=== PATIENT | male | born 1955 | race Caucasian/White ===

== ENCOUNTER 2019-10-29 11:49 | Emergency (ER) | payer OTHER ==
[2019-10-29] MEDS ORDERED: LISI-552 (12:00)
[2019-10-29] MEDS ORDERED: SIMV40TA25 (12:00)
--- NOTE | 2019-10-29 12:08 | ED Fall/Injury ---
General Chief Complaint: Trauma-Non Activation Stated Complaint: FALL; RT RIB/RT WRIST/RT SHOULDER INJ Nursing Triage Note: Fell off a 4 foot step ladder 1.5 hours prior to arrival. Is complaining of R rib, R wrist, and R shoulder pain. Pain is rated at 9/10. Has taken 4 tylenol prior to arrival. States taking a deep breath is painful. Source: patient Exam Limitations: no limitations History of Present Illness Date Seen by Provider: Oct 29, 2019 Time Seen by Provider: 11:54 Initial Comments Patient presents ER by private conveyance with his significant other and chief complaint that about an hour and half prior to arrival he fell 4 feet from a stepladder when the legs lost their footing on his outstretched right arm and right side. He did not strike his head nor lose consciousness. No nausea or vomiting. He took a couple tablets of Tylenol and the pain is still significant in his ribs and his right wrist has decreased mobility. He takes aspirin daily but no other blood thinners. No previous injury to his right wrist. No surgeries. No pain in his neck or back. Allergies and Home Medications Allergies Coded Allergies: No Known Drug Allergies (Unverified , 10/29/19) Patient Home Medication List Home Medication List Reviewed: Yes Review of Systems Review of Systems Constitutional: No chills, No diaphoresis Eyes: Denies Blindness, Denies Blurred Vision Ears, Nose, Mouth, Throat: denies ear pain, denies ear discharge Respiratory: No cough, No short of breath Cardiovascular: No chest pain, No edema, No palpitations Gastrointestinal: No abdominal pain, No constipation, No nausea Genitourinary: No discharge, No dysuria Musculoskeletal: see HPI; No back pain; joint pain Skin: see HPI; No pruritus, No rash; other (minor abrasions on right forearm) All Other Systems Reviewed Negative Unless Noted: Yes Past Rrhnlxa-Qbmnxi-Zgwska Hx Patient Social History Alcohol Use: Occasionally Uses Recreational Drug Use: No Smoking Status: Never a Smoker 2nd Hand Smoke Exposure: No Recent Foreign Travel: No Contact w/Someone Who Travel: No Recent Infectious Disease Expo: No Recent Hopitalizations: No Seasonal Allergies Seasonal Allergies: No Past Medical History Respiratory: No Cardiac: Yes High Cholesterol, Hypertension Neurological: No Genitourinary: No Gastrointestinal: No Musculoskeletal: No Endocrine: No HEENT: No Cancer: No Psychosocial: No Integumentary: No Blood Disorders: No Adverse Reaction/Blood Tranf: No Physical Exam Vital Signs Vital Signs - First Documented 10/29/19 11:55 Temp 36.1 Pulse 82 Resp 20 B/P (MAP) 140/71 (94) Pulse Ox 95 Capillary Refill : Less Than 3 Seconds Height, Weight, BMI Height: '" Weight: lbs. oz. kg; BMI Method: General Appearance: WD/WN, mild distress HEENT: PERRL/EOMI, normal ENT inspection, TMs normal, pharynx normal, other (. Atraumatic head with negative almendarez sign or raccoon eyes. Negative for hemotympanum) Neck: non-tender, full range of motion, supple, normal inspection Cardiovascular: normal peripheral pulses, regular rate, rhythm, no edema Respiratory: lungs clear, normal breath sounds, no respiratory distress, no accessory muscle use, other (right anterior ribs tender to palpation without deformity) Peripheral Pulses: 2+ Radial Pulses (R), 2+ Radial Pulses (L) Back: normal inspection, no vertebral tenderness Extremities: other (decreased range of motion of right wrist with swelling and tenderness over anatomic snuffbox. No pain over hand, digits.) Neurologic/Psychiatric: no motor/sensory deficits, alert, normal mood/affect, oriented x 3 Skin: normal color, warm/dry, other (minor abrasions over the right forearm) Misa Coma Score Best Eye Response: (4) Open Spontaneously Best Verbal Response: (5) Oriented Best Motor Response: (6) Obeys Commands Misa Total: 15 Progress/Results/Core Measures Results/Orders My Orders Orders - MANOJ MCKEON Ribs/Unilateral With Chest (10/29/19 12:03) Wrist 3 View Right (10/29/19 12:03) Vital Signs/I&O 10/29/19 11:55 Temp 36.1 Pulse 82 Resp 20 B/P (MAP) 140/71 (94) Pulse Ox 95 Blood Pressure Mean: 94 Progress Progress Note : Time: 12:07 Progress Note Using a supported clinical decision making process the patient has decided to opt for observation versus imaging of his head. Plan to image his right ribs, chest and right wrist. He is declining anything for pain at this time. Diagnostic Imaging Diagonstic Imaging: Xray Plain Films/CT/US/NM/MRI: chest Comments NAME: KELLI MILLAN [facility] REC#: [id number] PT STATUS: REG ER : 1955 PHYSICIAN: MANOJ MCKEON MD ADMIT DATE: 10/29/19/ER FS Draft Date of Exam:10/29/19 RIBS/UNILATERAL WITH CHEST INDICATION: Fall from a step ladder with injury to right-sided ribs. TIME OF EXAM: 12:09 PM Multiple views of the right ribs were obtained. There is a minimally displaced fracture involving the anterior right 9th rib. No other rib fractures are identified. No parenchymal contusion, effusion or pneumothorax is detected. Lungs clear. IMPRESSION: Minimally displaced anterior right 9th rib fracture. Dictated on workstation # [id number] Dict: 10/29/19 1246 Trans: 10/29/19 1248 CVB [id number] Interpreted by: BRYCE WALTON MD Electronically signed by: Reviewed: Reviewed by Me Diagonstic Imaging: Xray Plain Films/CT/US/NM/MRI: hand (right wrist) Comments [facility], [place] NAME: KELLI MILLAN [facility] REC#: [id number] PT STATUS: REG ER : 1955 PHYSICIAN: MANOJ MCKEON MD ADMIT DATE: 10/29/19/ER FS Draft Date of Exam:10/29/19 WRIST 3 VIEW RIGHT INDICATION: Fall, pain COMPARISON: None available. TECHNIQUE: 3 radiographs of the right wrist dated 10/29/2019. FINDINGS: Acute fracturing of the distal radius is identified with associated intra-articular extension to the radiocarpal joint. Very minimal articular step-off is suggested on the oblique radiographs. No additional fracture or dislocation. No destructive osseous process. No suspicious radiopaque foreign body. IMPRESSION: Acute distal radial fracture with associated intra-articular extension to the radiocarpal joint. Fracture is essentially non-displaced with questionable minimal articular surface depression. Dictated on workstation # [id number] Dict: 10/29/19 1226 Trans: 10/29/19 1231 CVB [id number] Interpreted by: CHRISTEL CLANCY MD Electronically signed by: Reviewed: Reviewed by Me Consults : Consulting Physician: CHRISTIANO KRAMER MD Consults Notes Discussed the case with Dr. Kramer and he reviewed the imaging electronically. He would recommend sugar tong splint and follow up next Tuesday. Departure Impression Primary Impression: Distal radius fracture, right Qualified Codes: S52.501A - Unspecified fracture of the lower end of right radius, initial encounter for closed fracture Additional Impressions: Closed rib fracture Qualified Codes: S22.31XA - Fracture of one rib, right side, initial encounter for closed fracture Fall from ladder Qualified Codes: W11.XXXA - Fall on and from ladder, initial encounter Disposition: HOME, SELF-CARE Condition: Stable Departure-Patient Inst. Decision time for Depature: 13:00 Referrals: AMARILYS MCQUEEN MD (PCP) Primary Care Physician CHRISTIANO KRAMER MD Patient Instructions: Head Injury Observation (DC), Radius Fracture (DC), Rib Fracture (DC) Add. Discharge Instructions: Over the next 24 hours if he started to have any confusion, weakness, difficulty walking and need to return to the ER promptly. For both you're fractured rib and wrist you may use ice packs 20 minutes on every 2 hours for the first 2 days to decrease swelling and pain. Elevating your wrist but the level of your heart will help reduce swelling and pain. Tylenol 650 mg every 8 hours as necessary for pain. Hydrocodone one tablet every 6 hours as necessary for breakthrough pain. Hydrocodone will cause drowsiness as well as constipation. MiraLAX once or twice a day should combat constipation. Call Dr. Kramer's office and request follow-up appointment in 1 week. They will help you manage your fracture in the clinic. All discharge instructions reviewed with patient and/or family. Voiced unders tanding. Scripts Hydrocodone/Acetaminophen (Hydrocodone-Acetamin 5-325 mg) 1 Each Tablet 1 EACH PO Q6H PRN for PAIN-BREAKTHROUGH, #20 TAB 0 Refills Prov: MANOJ MCKEON 10/29/19 Copy Copies To 1: CHRISTIANO KRAMER MD, TITUS J Oct 29, 2019 12:08
--- NOTE | 2019-10-29 12:32 | Diagnostic Imaging Report ---
INDICATION: Fall, pain COMPARISON: None available. TECHNIQUE: 3 radiographs of the right wrist dated 10/29/2019. FINDINGS: Acute fracturing of the distal radius is identified with associated intra-articular extension to the radiocarpal joint. Very minimal articular step-off is suggested on the oblique radiographs. No additional fracture or dislocation. No destructive osseous process. No suspicious radiopaque foreign body. IMPRESSION: Acute distal radial fracture with associated intra-articular extension to the radiocarpal joint. Fracture is essentially non-displaced with questionable minimal articular surface depression. Dictated by: Dictated on workstation # [id number]
--- NOTE | 2019-10-29 12:48 | Diagnostic Imaging Report ---
INDICATION: Fall from a step ladder with injury to right-sided ribs. TIME OF EXAM: 12:09 PM Multiple views of the right ribs were obtained. There is a minimally displaced fracture involving the anterior right 9th rib. No other rib fractures are identified. No parenchymal contusion, effusion or pneumothorax is detected. Lungs clear. IMPRESSION: Minimally displaced anterior right 9th rib fracture. Dictated by: Dictated on workstation # [id number]
[2019-10-29] MEDS ORDERED: HYDR-83 PO (13:10)
--- OUTSIDE RECORDS SUMMARY | 2019-10-29 13:30 | XMS REPORT | Continuity of Care Document ---
Demographics x Preferred Language Unknown Marital Status Unknown Congregation Affiliation Unknown Race Unknown Ethnic Group Unknown Author Organization Unknown Address Unknown Phone Unavailable Allergies There is no data. Medications There is no data. Problems There is no data. Procedures There is no data. Results Test Result Range CBC - 01/25/19 08:10 WHITE BLOOD CELL COUNT 6.2 Thousand/uL 3 .8-10.8 RED BLOOD CELL COUNT 5.39 Million/uL 4.2 0-5.80 HEMOGLOBIN 11.8 g/dL 13.2-17.1 HEMATOCRIT 39.5 % 38.5-50.0 MCV 73.3 fL 80.0-100.0 MCH 21.9 pg 27.0-33.0 MCHC 29.9 g/dL 32.0-36.0 RDW 19.1 % 11.0-15.0 PLATELET COUNT 273 Thousand/uL 140-400 MPV 8.7 fL 7.5-12.5 ABSOLUTE NEUTROPHILS 3832 cells/uL 1500- 7800 ABSOLUTE LYMPHOCYTES 1383 cells/uL 850-3 900 ABSOLUTE MONOCYTES 787 cells/uL 200-950 ABSOLUTE EOSINOPHILS 149 cells/uL 15-500 ABSOLUTE BASOPHILS 50 cells/uL 0-200 NEUTROPHILS 61.8 % NRG LYMPHOCYTES 22.3 % NRG MONOCYTES 12.7 % NRG EOSINOPHILS 2.4 % NRG BASOPHILS 0.8 % NRG Encounters ACCT No. Visit Date/Time Discharge Status Pt. Type Provider Facility Loc./Unit Complaint [id number] 06/01/2018 09:20:00 06/01/2018 23:59: 59 CLS Outpatient [facility] [id number] 01/25/2019 08:40:00 Document Registration [id number] 10/29/2019 11:52:[address] Emergency MIKE RODRÍGUEZ, MANOJ Akbar [facility] ER FS FALL; RT RIB/RT WRIST/RT LADY ULDER INJ
[2019-10-29 13:45] VITALS: BP 138/79
== END 2019-10-29 13:50 | disposition home or self-care (01) ==
LOC: ER FS 11:52
DX: S52.501A Unspecified fracture of the lower end of right radius, initial encounter for closed fracture (principal); S22.31XA Fracture of one rib, right side, initial encounter for closed fracture; E78.00 Pure hypercholesterolemia, unspecified; I10 Essential (primary) hypertension; Z79.82 Long term (current) use of aspirin; W11.XXXA Fall on and from ladder, initial encounter
CPT/HCPCS: 29105; 71101; 73110

== ENCOUNTER → 2019-11-06 | Outpatient (CLI) | payer OTHER ==
[~2019-11-06] MED LIST: HYDR-83 PO; LISI-552; SIMV40TA25
--- NOTE | 2019-11-06 10:40 | Diagnostic Imaging Report ---
INDICATION: Fracture, follow-up TECHNIQUE: 3 views of the right wrist CORRELATION STUDY: 10/29/2019 FINDINGS: Relatively nondisplaced fracture of the distal right radius is again demonstrated. Main fracture line traverses the metaphysis. There is longitudinal fracture line extending into the articular surface. The overall alignment appears to be generally stable. Fracture lines are still well visualized. No significant bridging callus formation. Distal ulna is intact. Carpal bones maintained. IMPRESSION: 1. Generally stable alignment and appearance of the distal right radius fracture. Intra-articular extension is again demonstrated. Fracture lines are still well visualized with very little, if any, interval healing suggested. Dictated by: Dictated on workstation # [id number]
== END ==
LOC: RAD FS 09:31
PROVIDERS: ATTEND Nurse Practitioner
DX: S52.571D Other intraarticular fracture of lower end of right radius, subsequent encounter for closed fracture with routine healing (principal); X58.XXXD Exposure to other specified factors, subsequent encounter
CPT/HCPCS: 73110

== ENCOUNTER → 2019-11-20 | Outpatient (CLI) | payer OTHER ==
--- NOTE | 2019-11-20 09:28 | Diagnostic Imaging Report ---
HISTORY: Followup fracture right wrist. TECHNIQUE: Three views of the right wrist. COMPARISON: 11/06/2019. FINDINGS: Redemonstrated is a mildly comminuted intra-articular fracture of the distal right radius in stable alignment. There is no significant displacement. There does appear to be widening of the scapholunate interval, concerning for ligamentous injury. There are degenerative changes of the basal joints of the thumb. The osseous fine detail and soft tissues are suboptimally evaluated due to the overlying splint material. IMPRESSION: 1. Intra-articular fracture of the distal right radius in stable alignment since the prior study. 2. Widening of the scapholunate interval, concerning for ligamentous injury. Dictated by: Dictated on workstation # [id number]
== END ==
LOC: RAD FS 08:55
PROVIDERS: ATTEND Nurse Practitioner
DX: S52.571D Other intraarticular fracture of lower end of right radius, subsequent encounter for closed fracture with routine healing (principal)
CPT/HCPCS: 73110

== ENCOUNTER → 2019-11-22 | Outpatient (CLI) | payer OTHER ==
--- NOTE | 2019-11-22 09:42 | Diagnostic Imaging Report ---
EXAMINATION: Left wrist, 2 views INDICATION: Surgical planning. Comparison exam. Right wrist fracture. COMPARISON: Multiple right wrist radiographs, most recent performed on 11/20/2019. FINDINGS: No fracture or acute osseous abnormality is identified. Bony alignment is maintained. Carpal configuration is normal. There is marked degenerative change of the radiocarpal joint, with increased sclerosis and decreased joint space noted. There is also marked degenerative change of the 1st carpometacarpal joint, with bulky osteophyte formation and joint space narrowing. Punctate ossific density adjacent to the ulnar styloid is of doubtful clinical significance and may reflect sequela of prior trauma. Regional soft tissues are unremarkable. IMPRESSION: No acute fracture or dislocation. Marked degenerative changes of the radiocarpal and 1st carpometacarpal joints. Dictated by: Dictated on workstation # [id number]
== END ==
LOC: RAD FS 09:00
PROVIDERS: ATTEND Nurse Practitioner
DX: S52.571D Other intraarticular fracture of lower end of right radius, subsequent encounter for closed fracture with routine healing (principal); M19.032 Primary osteoarthritis, left wrist
CPT/HCPCS: 73100

== ENCOUNTER → 2019-12-31 | Outpatient (CLI) | payer OTHER ==
[~2019-12-31] MED LIST changes: +HYDR-3812 PO; -HYDR-83 PO
--- NOTE | 2019-12-31 09:21 | Diagnostic Imaging Report ---
INDICATION: Fracture. 3 views were obtained. Comparison made with prior examination of 11/20/2019. FINDINGS: There is stable alignment of the subacute fracture involving the distal radius. There appears to be some callus formation. No other acute fracture or dislocation. Soft tissues are unremarkable. IMPRESSION: Stable alignment and interval callus formation about the distal right radial fracture as described. Dictated by: Dictated on workstation # [id number]
== END ==
LOC: RAD FS 08:44
PROVIDERS: ATTEND Nurse Practitioner
DX: S52.571D Other intraarticular fracture of lower end of right radius, subsequent encounter for closed fracture with routine healing (principal)
CPT/HCPCS: 73110